=== PATIENT | male | born 1995 | race Caucasian/White ===

== ENCOUNTER 2022-05-23 19:30 | Emergency (ER) | payer BC ==
[2022-05-23] MEDS ORDERED: FLUORESCEIN NA 1 EA STRIP ONE (19:40)
[2022-05-23] MEDS ORDERED: TETRACAINE 0.5% OPHTH SOLN 2 ML BOTTLE ONE (19:40)
[2022-05-23 20:00] VITALS: BP 116/60; PULSE 70; RESP 15; TEMP 99; BMI 26.6
[2022-05-23] MEDS ORDERED: TOBRA 0.3%/DEXAMETH 0.1% OPHTHALMIC SUSP 2.5 ML BTL OD STA (20:09)
[2022-05-23] MEDS ORDERED: TOBRAMYCIN 0.3% OPHTH SOLN 5 ML BOTTLE ONE (20:13)
== END 2022-05-23 20:19 | disposition home or self-care (01) ==
LOC: FER 19:30
DX: S05.01XA Injury of conjunctiva and corneal abrasion without foreign body, right eye, initial encounter (principal)
CPT/HCPCS: 99283-25

== ENCOUNTER 2023-12-19 17:48 | Emergency (ER) | payer BC, OTHER ==
[2023-12-19 18:01] VITALS: BP 120/57; PULSE 58; RESP 16; TEMP 97.9; BMI 26.4
[2023-12-19] MEDS: DIPHTH,PERTUSS(ACELL),TET 0.5 ML DISP.SYRIN IM ONE (18:13)
== END 2023-12-19 18:19 | disposition home or self-care (01) ==
LOC: FER 17:48
DX: T22.212A Burn of second degree of left forearm, initial encounter (principal); X17.XXXA Contact with hot engines, machinery and tools, initial encounter; Y92.810 Car as the place of occurrence of the external cause
CPT/HCPCS: 99282-25